=== PATIENT | male | born 1980 | race Caucasian/White ===

== ENCOUNTER → 2017-02-02 | Outpatient (CLI) | payer OTHER | LOC: CIMAGING 13:32 | PROVIDERS: ATTEND Podiatrist | DX: S92.351A Displaced fracture of fifth metatarsal bone, right foot, initial encounter for closed fracture (principal) | CPT/HCPCS: 73630-PO ==

== ENCOUNTER → 2017-03-13 | Outpatient (CLI) | payer OTHER | LOC: CIMAGING 08:31 | PROVIDERS: ATTEND Podiatrist | DX: S92.351D Displaced fracture of fifth metatarsal bone, right foot, subsequent encounter for fracture with routine healing (principal) | CPT/HCPCS: 73630-PO ==